=== PATIENT | male | born 1960 | race Caucasian/White ===

== ENCOUNTER 2020-04-09 14:39 | Outpatient (CLI) | payer OTHER, SELFPAY ==
--- NOTE | ~2020-04-09 | XR_ITS ---
EXAMINATION: XR chest 2V DATE: 04/09/2020 15:03 INDICATION: Hypertension TECHNIQUE: PA and lateral views of the chest are obtained. COMPARISON: None available FINDINGS: The lungs are free of acute opacities. There is no pleural effusion or pneumothorax. The ca rdiomediastinal silhouette is normal. The visualized bones and soft tissues are unremarkable. IMPRESSION: 1. No acute cardiopulmonary abnormality. Reviewed, dictated and finalized at location A.
--- NOTE | 2020-04-09 14:40 | ECG_ITS ---
Measurements Intervals [place] Rate: 88 P: 59 ND: 173 QRS: -24 QRSD: 106 T: 32 QT: 348 QTc: 423 Interpretive Statements SINUS RHYTHM BORDERLINE R WAVE PROGRESSION, ANTERIOR LEADS BASELINE ARTIFACT- V6 BORDERLINE ECG Electronically Signed On 04-09-2020 14:54:55 CDT by Patrick Alfredo D.O.
[2020-04-09 15:12] LABS: Hematocrit 46.6 % (42.0-52.0); Hemoglobin 16.3 g/dL (14.0-18.0); Mean Corpuscular Hemoglobin 32.3 pg (26-34); Mean Corpuscular Volume 92.3 fl (80-100); Mean Platelet Volume 8.7 fl (7.4-10.4); Platelet Count Result 251 k/mm3 (150-375); Red Blood Count 5.05 M/mm3 (4.6-6.20); Red Cell Distribution Width 12.7 % (11.5-14.5); White Blood Count 7.8 K/mm3 (4.5-10.0)
[2020-04-09 15:27] LABS: Blood Urea Nitrogen 21 mg/dL (9-20); Calcium 9.7 mg/dL (8.4-10.2); Carbon Dioxide 27 mmol/L (22-30); Chloride 102 mmol/L (98-107); Estimated Glomerular Filt Rate > 60; Glucose 101 mg/dL (75-110); Potassium 3.7 mmol/L (3.4-5.0); Sodium 135 mmol/L (137-145)
== END 2020-04-09 14:40 | disposition home or self-care (01) ==
LOC: ANHSURGERY 14:40
PROVIDERS: PCP Family Medicine; Visit Provider Surgery
DX: Z01.812 Encounter for preprocedural laboratory examination (principal); K43.2 Incisional hernia without obstruction or gangrene; I10 Essential (primary) hypertension; R94.31 Abnormal electrocardiogram [ECG] [EKG]
CPT/HCPCS: 36415; 71046; 80048; 85027; 93005

== ENCOUNTER 2020-04-14 00:24 | Outpatient (CLI) | payer OTHER, SELFPAY ==
[2020-04-14 17:43] LABS: SARS-CoV-2 RNA PCR Negative
== END 2020-04-14 00:25 | disposition home or self-care (01) ==
LOC: ANHCOVIDDT 00:24
PROVIDERS: PCP Family Medicine; Visit Provider Surgery
DX: Z01.818 Encounter for other preprocedural examination (principal); Z11.59 Encounter for screening for other viral diseases
CPT/HCPCS: 87635; C9803; U0003

== ENCOUNTER 2020-04-16 00:58 | Day surgery (SDC) | payer OTHER, SELFPAY ==
[2020-04-07 15:43] VITALS: BMI 30.7
[2020-04-16] VITALS (10 sets, daily range): BP systolic 122–199; BP diastolic 61–91; PULSE 78–98; RESP 16–24; TEMP 36.4–37.1; O2SAT 90–98
--- NOTE | 2020-04-16 11:30 | WPDHPUPDATE1 ---
History and Physical Update Update Date/Time: 04/16/20 11:30 History and Physical has been reviewed, including an updated exam of the patient. There are NO changes in the patient's condition. Risks, benefits, and alternatives have been discussed and questions answered. Patient agrees to proceed with procedure.
--- NOTE | 2020-04-16 11:36 | WPDANESEPPF ---
Anes - Initial Pre Proc Eval Procedure: Operation Date: 04/16/20 13:00 Proposed Procedures p Laparoscopic Repair Incisional Hernia With Mesh - Srinivasa Conner MD Date/Time: 04/16/20 11:36 Surgeon: Srinivasa Conner MD Pre Op Diagnosis: Incisional Hernia Patient Data Age: 59 Gender: M Height: 5 ft 5 in Weight: 83.91 kg Allergies Allergy/AdvReac Type Severity Reaction Status Date / Time No Known Allergies Allergy Mild Verified 04/07/20 15:46 Home Medications Medication Instructions Recorded Confirmed Type amlodipine 10 mg tablet 10 mg PO DAILY 02/25/20 04/07/20 History hydrochlorothiazide 12.5 mg capsule 12.5 mg PO DAILY 02/25/20 04/07/20 History lisinopril 10 mg tablet 10 mg PO DAILY 02/25/20 04/07/20 History multivitamin 1 tablet PO DAILY 02/25/20 04/07/20 History rosuvastatin 20 mg tablet 20 mg PO DAILY 02/25/20 04/07/20 History vitamin E (dl, acetate) 400 unit 400 unit PO DAILY 02/25/20 04/07/20 History capsule Patient hx anesthesia problems: none Family hx anesthesia problems: none PMFSH Social History Social History Smoking packs per day: 2 Smoking cigarettes per day: 40.0 Years smoked: 45 Smoking pack-years: 90.00 Smoking status: Current every day smoker Tobacco type: cigarettes Alcohol intake: current Drinks per week: 15 Substance use: never Substance use type: does not use Gender identity (if verbalized by the patient): Male Anes - Eval Final PreProcedure Day of Procedure 04/16/20 11:36 Patient weight: overweight Heart: regular rate and rhythm Lungs: clear to auscultation Airway: Mallampati scale class III Neurological: alert and oriented Last oral intake: >/= 8 hours ASA classification: III Emergent: no Anesthetic plan: proceed Anesthesia type and monitoring: general ETT and standard monitoring Informed Consent: The patient's anesthetic plan and its attendant risks and benefits were discussed with the patient/family/POA. Questions were solicited and answers provided to the satisfaction of the patient/family/POA.
[2020-04-16] MEDS: LACTATED RINGERS 1,000 ML 30 ML IV CONT ×2 (11:55→14:57)
[2020-04-16] MEDS: ceFAZolin 2 GM/D5W 50 ML 2 GM/50 ML BAG IVPB (12:42)
[2020-04-16] MEDS: BUPIVACAINE/EPINEPHRINE 0.5% 30 ML VIAL INFILTRATE (13:32)
[2020-04-16] MEDS: KETOROLAC 30 MG/ML VIAL (*BKC) IV PUSH (13:55)
--- NOTE | 2020-04-16 14:51 | PM.PROC ---
Procedure Note - Detailed Date of procedure: 04/16/20 Pre-op diagnosis: Incisional Hernia Incisional hernia Post-op diagnosis: same Procedure performed: Laparoscopic repair of multiple incisional hernias with 20 x 15 cm Symbotex mesh Description of procedure: The patient was taken to surgery and induced into general anesthesia. Wynn catheter was placed. The abdomen was prepped and draped. The initial trocar was a 5 mm applied Medical optical trocar in the left sub costal position. It was immediately evident that there were many omental adhesions to the anterior abdominal wall. We found a space in the left mid abdomen where another 5 mm port could be placed. I then began performing laparoscopic adhesiolysis, clearing the anterior abdominal wall adhesions. Eventually I was able to place another 5 mm port just left of the epigastric area. We continued this dissection. Eventually a 10 11 port was able to be placed in the left lower quadrant. Once the omental adhesions lateral to the previous incision were taken down, the chronically incarcerated omentum in the multiple abdominal wall defects of the incisional hernia were addressed. These hernia sacs were gently reduced using traction and some sharp dissection. Minimal cautery was used. No particular bleeding occurred. Eventually all the hernias had their contents reduced and I was able to see the extent of the multiple hernia defects. I placed a ruler in the abdomen and measured the length of fascia that would require repair. This was approximately 9 cm. Width of the repair was about 4 cm. A 20 x 15 Symbotex mesh was chosen. I then used a 22 gauge needle and reduced the insufflation pressure on the abdomen. Passing the needle along the outer edges of the hernia I was able to ankit on the skin the area that would need repair. I then placed the Symbotex over the marked area of the hernia defects. I meghan around the edges of the Symbotex mesh. I then placed mijares where each of the 4 transfascial sutures would be placed. I then placed 2 0 Clairfield-Cristofer sutures in the Symbotex mesh on the side of the mesh that would be against the abdominal wall. I also marked where each of these sutures were located so that I could orient the mesh appropriately once it was in the abdomen. I then rolled the mesh after it had been hydrated. It was passed through the 10 11 port. I unrolled it and oriented appropriately. Using the granny suture pass device, I brought each of the Clairfield-Cristofer sutures out at the previously marked sites. I checked the tension on the mesh at each juncture and the mesh was positioned well with the appropriate amount of tension. Once all the transfascial sutures had been positioned, I again checked the mesh position and tension. All looked good. I tied down each of the transfascial sutures. I then placed 2 5 mm ports on the patient's right side of the abdomen. We placed the camera on the right side and I used the secure strap from the right side and began tacking the mesh to the anterior abdominal wall with the secure strap absorbable clips. Once the left side of the mesh had been tacked, we went back to the patient's left side and proceeded to secure the mesh on the patient's right side in similar fashion. I went back again to the right side and placed a few more tacks on the contralateral side of the mesh. We again changed sides and I looked at the entire fixation. A few more tacks were placed but really all looked quite good. I then used the Vaughn Han suture pass device and closed the fascia at the 10 11 left lower quadrant trocar site. We evacuated CO2 and removed all the trocar sleeves. All skin wounds were closed with subcuticular 4 O Monocryl skin suture. The wounds were dressed with Exofin surgical adhesive. Wynn catheter was removed. The patient was awakened and taken to recovery in good condition. Estimated blood loss was 5 cc. No complications were noted. Implants: 20 cm x 15 cm Symbote
--- NOTE | 2020-04-16 15:45 | PC.NURSE ---
This patient, Dandy Flynn, was admitted to [facility] Room 315-01. Patient/family oriented to hospital policies and general routines including ID bracelet, bed and alarms, visiting hours, pain management, procedures, bathroom and other care routines, personal items, smoking policy, room service/diet, and visiting hours. Valuables list has been completed. Information on how to activate the Rapid Response Team has been discussed. Patient/Family are encouraged to report perceived risks to care and to ask questions if they do not understand what they are told or what they should do.
--- NOTE | 2020-04-16 15:54 | SUR.PHASEI ---
[id number] SPOKE WITH SPOUSE IRIS PER PHONE- UPDATE & ROOM # GIVEN.
[2020-04-16] MEDS: LACTATED RINGERS 1,000 ML 100 ML IV CONT (16:16)
[2020-04-16] MEDS: MORPHINE SULFATE 4 MG/ML INJ IV PUSH (16:23)
[2020-04-16] MEDS: SENNA/DOCUSATE SODIUM TABLET 2 TAB PO (21:09)
[2020-04-16] MEDS: IBUPROFEN IV 800 MG/200 ML 800 MG/200 ML BAG 400 MG IVPB (21:11)
[2020-04-17] MEDS: IBUPROFEN IV 800 MG/200 ML 800 MG/200 ML BAG 400 MG IVPB ×3 (01:51→14:18)
[2020-04-17 02:07] VITALS: BP 126/78; PULSE 80; RESP 16; TEMP 36.7; O2SAT 93
[2020-04-17 06:00] VITALS: BP 140/69; PULSE 86; RESP 16; TEMP 37.4; O2SAT 92
[2020-04-17 06:47] LABS: Hematocrit 45.1 % (42.0-52.0); Hemoglobin 15.5 g/dL (14.0-18.0); Mean Corpuscular HGB Conc 34.4 g/dl (32-36); Mean Corpuscular Hemoglobin 32.1 pg (26-34); Mean Corpuscular Volume 93.4 fl (80-100); Mean Platelet Volume 8.8 fl (7.4-10.4); Platelet Count Result 262 k/mm3 (150-375); Red Blood Count 4.83 M/mm3 (4.6-6.20); Red Cell Distribution Width 12.9 % (11.5-14.5); White Blood Count 12.3 K/mm3 (4.5-10.0)
[2020-04-17 07:06] LABS: Blood Urea Nitrogen 13 mg/dL (9-20); Calcium 9.2 mg/dL (8.4-10.2); Carbon Dioxide 24 mmol/L (22-30); Chloride 103 mmol/L (98-107); Estimated CRCL calculation 97 ml/min; Estimated Glomerular Filt Rate > 60; Glucose 113 mg/dL (75-110); Potassium 3.7 mmol/L (3.4-5.0); Sodium 137 mmol/L (137-145)
[2020-04-17] MEDS: ENOXAPARIN 40 MG/0.4 ML SYRINGE SUB-Q (07:57)
[2020-04-17] MEDS: AMLODIPINE BESYLATE 5 MG TABLET 10 MG PO (07:58)
[2020-04-17] MEDS: hydroCHLOROthiazide 12.5 MG CAPSULE PO (07:58)
[2020-04-17] MEDS: lisinopriL 10 MG TABLET PO (07:58)
[2020-04-17] MEDS: polyethylene glycoL 3350 17 GM POWD.PACK PO (07:59)
[2020-04-17] MEDS: ROSUVASTATIN 10 MG TABLET 20 MG PO (07:59)
--- NOTE | 2020-04-17 08:05 | WPDANESPN ---
Anes - Prog Note Post-Op Date/Time: 04/17/20 08:06 Cardiovascular status: normal Respiratory status: normal Airway patency: baseline Mental status: baseline Post-Op hydration status: normal Vital Signs: Last Vital Signs Temp 37.4 C 04/17/20 06:00 Pulse 86 04/17/20 06:00 Resp 16 04/17/20 06:00 BP 140/69 04/17/20 06:00 Pulse Ox 92 04/17/20 06:00 I/O: Intake & Output 04/16/20 04/17/20 04/17/20 23:59 07:59 15:59 Intake Total 500 1450 Output Total 1000 Balance 500 450 Laboratory Tests 04/17/20 06:01 04/17/20 06:01 04/17/20 04/17/20 06:01 06:01 WBC 12.3 H RBC 4.83 Hgb 15.5 Hct 45.1 MCV 93.4 MCH 32.1 MCHC 34.4 RDW 12.9 Plt Count 262 MPV 8.8 Sodium 137 Potassium 3.7 Chloride 103 Carbon Dioxide 24 BUN 13 D Creatinine 0.70 Estim Creat Clear Calc 97 Estimated GFR > 60 Glucose 113 H Calcium 9.2 Post-procedural complaints: none Patient Feedback: Patient satisfied with anesthetic care.
[2020-04-17 10:00] VITALS: BP 135/73; PULSE 82; RESP 18; TEMP 36.6; O2SAT 92
--- NOTE | 2020-04-17 13:31 | P.DS_ITS ---
DS: Admitting Diagnosis Admitting Diagnosis Admitting Diagnosis: Incisional hernia without obstruction or gangrene DS: Discharge Diagnosis Discharge Diagnosis (1) Incisional hernia without obstruction or gangrene: Code(s): K43.2 - Incisional hernia without obstruction or gangrene Status: Acute DS: Summary Hospital Course Reason for hospitalization: Incisional hernia Hospital Course: This is a 59-year-old man who presented for elective laparoscopic incisional hernia repair. He underwent laparoscopic incisional hernia repair with mesh on 04/16/[address] Conner. He was admitted for postoperative pain control. He was placed on IV and p.o. pain meds. His diet and activity were gradually advanced as tolerated. On postop day 1, his pain was well controlled with oral pain meds. He was able to ambulate with minimal assistance. He was tolerating his diet and passing flatus. He was discharged on postop day 1. Status at Discharge Functional status at discharge: independent ambulation Overall status at discharge: patient is progressing back to baseline Time Spent with Patient Time attestation: Total time spent providing and/or coordinating discharge services: Time spent: Less than 30 minutes Exam Const: General: no acute distress Resp: Effort & Inspection: normal respiratory effort Auscultation: clear to auscultation bilaterally Cardio: Rate: regular rate Rhythm: regular rhythm GI: GI Palp: Yes Soft to palpation and Yes Tenderness to palpation present (GI) (Incisional) Auscultation: normal bowel sounds Skin: Other: Incisions clean, dry, intact Psych: Mental Status: mental status grossly normal DS: Data Data Completed and Pending Labs on day of discharge: Labs from last 24 hours 04/17/20 04/17/20 06:01 06:01 WBC 12.3 H RBC 4.83 Hgb 15.5 Hct 45.1 MCV 93.4 MCH 32.1 MCHC 34.4 RDW 12.9 Plt Count 262 MPV 8.8 Sodium 137 Potassium 3.7 Chloride 103 Carbon Dioxide 24 BUN 13 D Creatinine 0.70 Estim Creat Clear Calc 97 Estimated GFR > 60 Glucose 113 H Calcium 9.2 Discharge Plan Discharge Patient Disposition: Home, Self-Care Discharge Instructions: * Ambulate 3-4 x per day and as tolerated. * No lifting over 15-20lbs. * May bathe or shower. * Stairs are OK. * May drive a car in 3 days. Follow-up/Referrals: Srinivasa Conner MD [Physician] - 2 Weeks Discharge Medications: New hydrocodone-acetaminophen 5-325 mg tablet 1 - 2 tablet PO Q6H PRN (Reason: pain) Qty: 25 RF: 0 ketorolac 10 mg tablet 10 mg PO Q6H 4 Days Qty: 16 RF: 0 Continued multivitamin Tablet 1 tablet PO DAILY RF: 0 amlodipine 10 mg tablet 10 mg PO DAILY RF: 0 hydrochlorothiazide 12.5 mg capsule 12.5 mg PO DAILY RF: 0 lisinopril 10 mg tablet 10 mg PO DAILY RF: 0 rosuvastatin 20 mg tablet 20 mg PO DAILY RF: 0 vitamin E (dl, acetate) 400 unit capsule 400 unit PO DAILY RF: 0 Primary Care Provider: Oni Arnold Attending physician on admission: Srinivasa Conner
[2020-04-17 14:00] VITALS: BP 135/79; PULSE 67; RESP 18; TEMP 37.4; O2SAT 93
== END 2020-04-17 15:55 | disposition home or self-care (01) ==
LOC: ANHSURGERY 15:38 → ANH3MEDSUR 15:42
PROVIDERS: PCP Family Medicine; Visit Provider Surgery
PROC: (CPT 49654; principal; 2020-04-16 13:00)
DX: K43.2 Incisional hernia without obstruction or gangrene (principal); F17.210 Nicotine dependence, cigarettes, uncomplicated
CPT/HCPCS: 49654; 36415; 80048; 85027; A9270; C1781; J0690; J1100; J1650; J1741; J1885; J2250; J2270; J2405; J2704; J2710; J3010; J7120